=== PATIENT | female | born 1990 | race Caucasian/White ===

== ENCOUNTER 2016-09-16 21:05 | Emergency (ER) | payer OTHER ==
[2016-09-16 22:33] LABS: Anion Gap 17 mmol/L; BUN/Creatinine Ratio 6.66; Basophils % (Auto) 0.2 % (0.0-1.8); Blood Urea Nitrogen 4 mg/dL (7-17); Calcium 9.3 mg/dL (8.4-10.2); Carbon Dioxide 26 mmol/L (22-30); Chloride 97.4 mmol/L (98-107); Eosinophils % (Auto) 0.1 % (0.0-4.3); Glucose 115 mg/dL (65-100); Hematocrit 41.6 % (30.3-42.9); Hemoglobin 13.7 gm/dl (10.1-14.3); Mean Corpuscular HGB Conc 33 % (30-34); Mean Corpuscular Hemoglobin 32 pg (28-32); Mean Corpuscular Volume 96 fl (79-97); Platelet Count 215 K/mm3 (140-440); Potassium 3.7 mmol/L (3.6-5.0); Red Blood Count 4.34 M/mm3 (3.65-5.03); Red Cell Distribution Width 13.6 % (13.2-15.2); Sodium 137 mmol/L (137-145); White Blood Count 11.8 K/mm3 (4.5-11.0)
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
[2016-09-17] MEDS ORDERED: XYLOCAINE 1% MPF 5 mL INFILTRATI ONE (04:32)
[2016-09-17] MEDS ORDERED: ROCEPHIN IM ONE (04:32)
[2016-09-17] MEDS ORDERED: ZITHROMAX PO ONE (04:32)
[2016-09-17 05:15] VITALS: BP 134/72
--- NOTE | 2016-09-17 09:13 | XRay Report ---
Right hand 3 views: History: Trauma. Findings: No bony or articular abnormality. No fracture dislocation or periosteal reaction. Impression: No evidence of acute fracture.
== END 2016-09-17 05:15 | disposition home or self-care (01) ==
LOC: EEVIPCON 21:05 → ED 21:05
DX: S63.601A Unspecified sprain of right thumb, initial encounter (principal); F14.10 Cocaine abuse, uncomplicated; F32.9 Major depressive disorder, single episode, unspecified; N76.0 Acute vaginitis; F41.9 Anxiety disorder, unspecified; J45.909 Unspecified asthma, uncomplicated; F17.200 Nicotine dependence, unspecified, uncomplicated; Z98.51 Tubal ligation status; Z88.8 Allergy status to other drugs, medicaments and biological substances; X58.XXXA Exposure to other specified factors, initial encounter; Y93.89 Activity, other specified; Y99.8 Other external cause status; Y92.89 Other specified places as the place of occurrence of the external cause
CPT/HCPCS: 36415; 73130; 80048; 85025; 87210; 87591; 96372; 99285; G0480; J0696; 80320

== ENCOUNTER 2021-12-18 00:29 | Emergency (ER) | payer SELFPAY | END 2021-12-18 07:00 | disposition left against medical advice (07) | LOC: ED 00:29 | DX: R42 Dizziness and giddiness (principal); R11.0 Nausea; Z53.21 Procedure and treatment not carried out due to patient leaving prior to being seen by health care provider ==